=== PATIENT | male | born 1975 | race Caucasian/White ===

== ENCOUNTER 2021-06-10 07:00 | Outpatient (RCR) | payer OTHER | END 2021-06-16 | LOC: M PT 07:00 | PROVIDERS: ATTEND Physician Assistant | DX: S93.421D Sprain of deltoid ligament of right ankle, subsequent encounter (principal); S92.354D Nondisplaced fracture of fifth metatarsal bone, right foot, subsequent encounter for fracture with routine healing ==

== ENCOUNTER → 2021-07-20 | Outpatient (REF) | payer BC ==
[2021-07-20 21:07] LABS: RSV AMPLIFICATION NEGATIVE (NEGATIVE)
== END ==
LOC: M WUC 19:02
PROVIDERS: ATTEND Physician Assistant
DX: R68.83 Chills (without fever) (principal)

== ENCOUNTER → 2022-02-08 | Outpatient (CLI) | payer BC | LOC: M WUC 10:59 | PROVIDERS: ATTEND Physician Assistant | DX: M79.641 Pain in right hand (principal) ==

== ENCOUNTER 2022-05-21 11:32 | Inpatient (IN) | payer BC ==
[~2022-05-21] VITALS: Ht 170.2 cm; Wt 107.0 kg
[2022-05-21] MEDS ORDERED: FAMO10TA53 PO (11:49)
[2022-05-21] MEDS ORDERED: ISOVUE-370 76% 100ML VIAL As Ordered ONE (12:28)
[2022-05-21 12:45] LABS: BASO # 0.1 10^3/uL (0.0-0.2); BASO % 0.7 % (0.0-1.0); EOS # 0.1 10^3/uL (0.0-0.5); EOS % 0.7 % (0.0-3.0); HEMATOCRIT 45.2 % (42.0-52.0); HEMOGLOBIN 15.4 g/dl (13.5-17.5); LYMPH # 1.4 10^3/uL (1.5-5.0); LYMPH % 13.4 % (24.0-44.0); MEAN CORPUSCULAR HEMOGLOBIN 29.8 pg (27.0-33.0); MEAN CORPUSCULAR HGB CONC 34.1 g/dl (32.0-36.5); MEAN CORPUSCULAR VOLUME 87.6 fl (80.0-96.0); MONO # 0.8 10^3/uL (0.0-0.8); MONO % 7.1 % (2.0-8.0); NEUTROPHILS # 8.3 10^3/uL (1.5-8.5); NEUTROPHILS % 77.8 % (36.0-66.0); PLATELET COUNT, AUTOMATED 281 10^3/uL (150-450); RED BLOOD COUNT 5.16 10^6/uL (4.30-6.10); WHITE BLOOD COUNT 10.6 10^3/uL (4.0-10.0)
[2022-05-21 13:20] LABS: RSV AMPLIFICATION NEGATIVE (NEGATIVE)
[2022-05-21 13:22] LABS: BLOOD UREA NITROGEN 12 MG/DL (7-18); CALCIUM LEVEL 9.3 MG/DL (8.5-10.1); CARBON DIOXIDE LEVEL 23 MEQ/L (21-32); CHLORIDE LEVEL 108 MEQ/L (98-107); CK-MB VALUE MASS 2.6 NG/ML (<3.6); CREATININE FOR GFR 0.98 MG/DL (0.70-1.30); GLOMERULAR FILTRATION RATE > 60.0 (>60); GLUCOSE, FASTING 111 MG/DL (70-100); MB/CK RELATIVE INDEX 2.03 (< OR =4); POTASSIUM SERUM 4.3 MEQ/L (3.5-5.1); SODIUM LEVEL 139 MEQ/L (136-145)
[2022-05-21] MEDS ORDERED: ASPIRIN 81 MG CHEW TABLET PO ONE (13:25)
[2022-05-21 13:30] LABS: ERYTHROCYTE SEDIMENTATION RATE 3 mm/hr (0-15)
[2022-05-21] MEDS ORDERED: OXYM05SP NARES (14:18)
[2022-05-21] MEDS ORDERED: ALLE1TAB23 PO (14:18)
[2022-05-21] MEDS ORDERED: VITA100065 PO (14:18)
[2022-05-21] MEDS ORDERED: MULT-90 PO (14:18)
[2022-05-21] MEDS ORDERED: ESOM20CA25 PO (14:18)
[2022-05-21] MEDS ORDERED: L-LY500T14 PO (14:18)
[2022-05-21] MEDS ORDERED: PROBCAP14 PO (14:18)
[2022-05-21] MEDS ORDERED: FLON1SPR NARES (14:26)
[2022-05-21] MEDS ORDERED: HOME MED LIST COMPLETE! XX SCH (14:30)
[2022-05-21 14:52] LABS: INR 0.98; PARTIAL THROMBOPLASTIN TIME 26.4 SECONDS (24.8-34.2); PROTHROMBIN TIME 13.1 SECONDS (12.5-14.5)
[2022-05-21] MEDS ORDERED: ATORVASTATIN 20 MG TAB PO SCH (21:00)
[2022-05-21] MEDS: FLUTICASONE PROP 0.05% NASAL SPRAY 16 GM (FLONASE) NARES SCH (23:13)
[2022-05-21] MEDS: HEPARIN SOD (PORCINE) 5000UNITS/ML 1ML VIAL/SYRINGE SC SCH (23:15)
[2022-05-22] VITALS (9 sets, daily range): BP systolic 120–130; BP diastolic 69–70; O2SAT 94–99
[2022-05-22 00:18] LABS: ALBUMIN 3.7 GM/DL (3.2-5.2); ALT/SGPT 22 U/L (12-78); BILIRUBIN,DIRECT 0.1 MG/DL (0.0-0.2); BILIRUBIN,TOTAL 0.3 MG/DL (0.2-1.0); CHOLESTEROL LEVEL 170 MG/DL (<200); CHOLESTEROL RISK RATIO 3.617 (<5); FREE T4 1.07 NG/DL (0.76-1.46); HDL CHOLESTEROL 47 MG/DL (>40); LDL CHOLESTEROL 106 MG/DL (<100); NON-HDL-C 123 MG/DL; THYROID STIMULATING HORMONE 0.497 uIU/ML (0.358-3.740); TOTAL PROTEIN 7.1 GM/DL (6.4-8.2); TRIGLYCERIDES LEVEL 84 MG/DL (<150)
[2022-05-22 00:58] LABS: CK-MB VALUE MASS 1.9 NG/ML (<3.6); MB/CK RELATIVE INDEX 1.73 (< OR =4)
[2022-05-22] MEDS: HEPARIN SOD (PORCINE) 5000UNITS/ML 1ML VIAL/SYRINGE SC SCH ×3 (05:00→20:31)
[2022-05-22 07:01] LABS: HEMATOCRIT 43.2 % (42.0-52.0); HEMOGLOBIN 14.7 g/dl (13.5-17.5); MEAN CORPUSCULAR HEMOGLOBIN 30.2 pg (27.0-33.0); MEAN CORPUSCULAR VOLUME 88.7 fl (80.0-96.0); PLATELET COUNT, AUTOMATED 250 10^3/uL (150-450); RED BLOOD COUNT 4.87 10^6/uL (4.30-6.10); WHITE BLOOD COUNT 9.2 10^3/uL (4.0-10.0)
[2022-05-22 07:29] LABS: BLOOD UREA NITROGEN 13 MG/DL (7-18); CALCIUM LEVEL 9.3 MG/DL (8.5-10.1); CARBON DIOXIDE LEVEL 27 MEQ/L (21-32); CHLORIDE LEVEL 104 MEQ/L (98-107); CREATININE FOR GFR 0.95 MG/DL (0.70-1.30); GLOMERULAR FILTRATION RATE > 60.0 (>60); GLUCOSE, FASTING 102 MG/DL (70-100); PHOSPHORUS LEVEL 3.6 MG/DL (2.5-4.9); SODIUM LEVEL 137 MEQ/L (136-145)
[2022-05-22] MEDS ORDERED: PROHANCE 279.3MG/ML 15ML VIAL As Ordered ONE (10:12)
[2022-05-22] MEDS ORDERED: PROHANCE 279.3MG/ML 5ML VIAL As Ordered ONE (10:12)
[2022-05-22] MEDS: FLUTICASONE PROP 0.05% NASAL SPRAY 16 GM (FLONASE) NARES SCH (12:27)
[2022-05-22] MEDS ORDERED: NICOTINE 21MG/24HR 1 EA TRANSDERMAL TD PRN (19:45)
[2022-05-23 04:00] VITALS: BP 112/70
[2022-05-23] MEDS: HEPARIN SOD (PORCINE) 5000UNITS/ML 1ML VIAL/SYRINGE SC SCH (05:12)
[2022-05-23 08:00] VITALS: BP 120/75
[2022-05-23] MEDS: FLUTICASONE PROP 0.05% NASAL SPRAY 16 GM (FLONASE) NARES SCH (09:32)
[2022-05-23] MEDS ORDERED: ASPI81CH33 PO (09:43)
[2022-05-24 08:46] LABS: FOLATE > 24.0 NG/ML (>5.4); VITAMIN B12 LEVEL 460 PG/ML (247-911)
== END 2022-05-23 11:29 | disposition home or self-care (01) | DRG 54 ==
LOC: M ED 11:32 → M ED INP 11:33 → ENRESERV 05-22 08:16 → OBSVTOIN 05-22 09:32 → M PCU 05-22 12:06
PROVIDERS: ADMIT Internal Medicine; ATTEND Internal Medicine
PROC: B246ZZZ Ultrasonography of Right and Left Heart (ICD-10-PCS; principal; 2022-05-21)
DX: G43.909 Migraine, unspecified, not intractable, without status migrainosus (principal); F17.210 Nicotine dependence, cigarettes, uncomplicated; D72.829 Elevated white blood cell count, unspecified; Z79.899 Other long term (current) drug therapy; Z20.822 Contact with and (suspected) exposure to COVID-19; M51.24 Other intervertebral disc displacement, thoracic region; M50.221 Other cervical disc displacement at C4-C5 level

== ENCOUNTER → 2022-05-31 | Outpatient (REF) | payer BC ==
[~2022-05-31] MED LIST: ALLE1TAB23 PO; ASPI81CH33 PO; ESOM20CA25 PO; FAMO10TA53 PO; FLON1SPR NARES; L-LY500T14 PO; MULT-90 PO; OXYM05SP NARES; PROBCAP14 PO; VITA100065 PO
[2022-05-31 18:23] LABS: BASO # 0.1 10^3/uL (0.0-0.2); BASO % 0.7 % (0.0-1.0); EOS # 0.3 10^3/uL (0.0-0.5); EOS % 2.5 % (0.0-3.0); HEMOGLOBIN 16.1 g/dl (13.5-17.5); LYMPH # 1.7 10^3/uL (1.5-5.0); LYMPH % 17.4 % (24.0-44.0); MEAN CORPUSCULAR HEMOGLOBIN 29.7 pg (27.0-33.0); MEAN CORPUSCULAR HGB CONC 32.9 g/dl (32.0-36.5); MEAN CORPUSCULAR VOLUME 90.2 fl (80.0-96.0); MONO # 0.9 10^3/uL (0.0-0.8); MONO % 8.7 % (2.0-8.0); NEUTROPHILS # 7.1 10^3/uL (1.5-8.5); NEUTROPHILS % 70.4 % (36.0-66.0); PLATELET COUNT, AUTOMATED 302 10^3/uL (150-450); RED BLOOD COUNT 5.43 10^6/uL (4.30-6.10)
[2022-05-31 19:07] LABS: CHOLESTEROL LEVEL 219 MG/DL (<200); CHOLESTEROL RISK RATIO 4.469 (<5); HDL CHOLESTEROL 49 MG/DL (>40); LDL CHOLESTEROL 151 MG/DL (<100); NON-HDL-C 170 MG/DL; THYROID STIMULATING HORMONE 0.917 uIU/ML (0.358-3.740); TRIGLYCERIDES LEVEL 97 MG/DL (<150)
[2022-05-31 21:15] LABS: VITAMIN B12 LEVEL 619 PG/ML
[2022-05-31 21:16] LABS: FOLATE > 24.0 NG/ML
== END ==
LOC: M LAB REF 17:02
PROVIDERS: ATTEND Nurse Practitioner Family
DX: R20.2 Paresthesia of skin (principal)

== ENCOUNTER → 2022-06-15 | Outpatient (REF) | payer BC ==
[2022-06-15 19:03] LABS: BASO # 0.1 10^3/uL (0.0-0.2); BASO % 0.9 % (0.0-1.0); EOS # 0.3 10^3/uL (0.0-0.5); LYMPH # 2.2 10^3/uL (1.5-5.0); LYMPH % 24.9 % (24.0-44.0); MEAN CORPUSCULAR HEMOGLOBIN 29.9 pg (27.0-33.0); MEAN CORPUSCULAR HGB CONC 33.3 g/dl (32.0-36.5); MEAN CORPUSCULAR VOLUME 89.6 fl (80.0-96.0); MONO # 0.7 10^3/uL (0.0-0.8); NEUTROPHILS # 5.5 10^3/uL (1.5-8.5); NEUTROPHILS % 62.9 % (36.0-66.0); PLATELET COUNT, AUTOMATED 297 10^3/uL (150-450); RED BLOOD COUNT 5.36 10^6/uL (4.30-6.10); WHITE BLOOD COUNT 8.7 10^3/uL (4.0-10.0)
[2022-06-15 19:44] LABS: ERYTHROCYTE SEDIMENTATION RATE 5 mm/hr (0-15)
== END ==
LOC: M LAB REF 16:58
PROVIDERS: ATTEND Nurse Practitioner Family
DX: Q72.891 Other reduction defects of right lower limb (principal); R20.2 Paresthesia of skin

== ENCOUNTER → 2022-06-16 | Outpatient (RCR) | payer BC | LOC: M PT 07:44 | PROVIDERS: ATTEND Nurse Practitioner Family | DX: R20.2 Paresthesia of skin (principal); M62.81 Muscle weakness (generalized) ==

== ENCOUNTER 2022-06-24 07:00 | Outpatient (RCR) | payer BC | END 2022-07-17 | LOC: M PT 07:00 | PROVIDERS: ATTEND Nurse Practitioner Family | DX: M62.81 Muscle weakness (generalized) (principal); R20.2 Paresthesia of skin ==

== ENCOUNTER → 2022-07-08 | Outpatient (CLI) | payer BC ==
[2022-07-08 09:43] LABS: BASO # 0.1 10^3/uL (0.0-0.2); BASO % 1.1 % (0.0-1.0); EOS # 0.6 10^3/uL (0.0-0.5); EOS % 6.9 % (0.0-3.0); HEMATOCRIT 46.7 % (42.0-52.0); HEMOGLOBIN 15.7 g/dl (13.5-17.5); LYMPH # 2.4 10^3/uL (1.5-5.0); LYMPH % 30.1 % (24.0-44.0); MEAN CORPUSCULAR HEMOGLOBIN 29.6 pg (27.0-33.0); MEAN CORPUSCULAR HGB CONC 33.6 g/dl (32.0-36.5); MEAN CORPUSCULAR VOLUME 88.1 fl (80.0-96.0); MONO # 0.8 10^3/uL (0.0-0.8); MONO % 9.3 % (2.0-8.0); NEUTROPHILS # 4.2 10^3/uL (1.5-8.5); NEUTROPHILS % 52.4 % (36.0-66.0); PLATELET COUNT, AUTOMATED 274 10^3/uL (150-450); WHITE BLOOD COUNT 8.1 10^3/uL (4.0-10.0)
[2022-07-08 09:49] LABS: INR 0.89; PROTHROMBIN TIME 12.2 SECONDS (12.5-14.5)
[2022-07-08 09:50] LABS: PARTIAL THROMBOPLASTIN TIME 27.5 SECONDS (24.8-34.2)
== END ==
LOC: M LAB 08:00
PROVIDERS: ATTEND Psychiatry & Neurology Neurology
DX: G35 Multiple sclerosis (principal)

== ENCOUNTER → 2022-07-23 | Outpatient (CLI) | payer BC ==
[2022-07-23 11:36] LABS: APPEARANCE, CSF CLEAR (CLEAR); COLOR, CSF COLORLESS (COLORLESS); CSF TUBE# CELL CNT TUBE 1
[2022-07-23 11:50] LABS: CSF TUBE# TP TUBE 1; TOTAL PROTEIN,CSF 40.5 MG/DL (15-45)
[2022-07-23 11:53] LABS: CSF TUBE# GLU TUBE 1
[2022-07-23 12:15] VITALS: BP 128/68
== END ==
LOC: M IRPRO 08:00
PROVIDERS: ATTEND Psychiatry & Neurology Neurology
DX: G35 Multiple sclerosis (principal)

== ENCOUNTER 2022-08-10 08:45 | Outpatient (RCR) | payer BC | END 2022-08-17 | LOC: M PT 08:45 | PROVIDERS: ATTEND Nurse Practitioner Family | DX: M62.81 Muscle weakness (generalized) (principal) ==

== ENCOUNTER → 2022-08-13 | Outpatient (CLI) | payer BC | LOC: M SOG 08:11 | PROVIDERS: ATTEND Orthopaedic Surgery | DX: M51.36 Other intervertebral disc degeneration, lumbar region (principal); M25.551 Pain in right hip ==